=== PATIENT | female | born 1970 | race Caucasian/White ===

== ENCOUNTER → 2016-10-02 | Outpatient (CLI) | payer BC | END | disposition home or self-care (01) | LOC: LAB 13:34 | PROVIDERS: ATTEND Obstetrics & Gynecology | DX: N83.209 Unspecified ovarian cyst, unspecified side (principal) | CPT/HCPCS: 36415; 86304 ==

== ENCOUNTER → 2017-02-18 | Outpatient (CLI) | payer BC ==
--- NOTE | 2017-02-18 16:24 | RAD ---
Ultrasound pelvis with transvaginal 02/18/2017 Clinical indication: Bilateral ovarian cysts. Comparison: Images are not available, however there is a report from [email or web address] dated 09/18/2016. Findings: Examination is significantly limited due to body habitus. Uterus is present measuring 8.3 x 4.3 x 5.6 cm. Endometrium is not well evaluated with [employer] dual thickness measuring 10 mm. Right ovarian candidate measures 4.1 x 3.3 x 5.6 cm. Arterial and venous waveforms in the right ovary. There are 2 adjacent hypoechoic structures in the right ovary measuring 3.3 and 2.9 cm respectively with no definitive internal blood flow, however extensively limited. Left ovarian candidate measures 3.2 x 2.5 x 3.7 cm. Arterial and venous waveforms in the left ovarian candidate identified. No significant pelvic free fluid. Impression: 1. Significantly limited exam due to body habitus. 2. There are 2 adjacent hypoechoic structures on the right ovarian candidate measuring 3.3 and 2.9 cm with no definitive internal blood flow, however significantly limited. Findings may represent involuting cysts, however ovarian epithelial neoplasm cannot be definitively excluded. MRI pelvis without and with contrast is recommended for evaluation of ovarian malignancy. 3. No significant pelvic free fluid.
== END | disposition home or self-care (01) ==
LOC: US 14:26
PROVIDERS: ATTEND Obstetrics & Gynecology
DX: N83.201 Unspecified ovarian cyst, right side (principal); N83.202 Unspecified ovarian cyst, left side
CPT/HCPCS: 76830; 76856

== ENCOUNTER → 2020-06-13 | Outpatient (CLI) | payer BC ==
[2020-06-13 09:15] LABS: ALBUMIN 3.1 g/dL (3.4-5.0); ALBUMIN/GLOBULIN RATIO 0.8 (1.0-1.7); CALCIUM 9.1 mg/dL (8.5-10.1); GFR 59.2; POTASSIUM 4.3 mmol/L (3.5-5.1); TOTAL BILIRUBIN 0.3 mg/dL (0.2-1.0); TOTAL PROTEIN 6.8 g/dL (6.4-8.2)
[2020-06-14 01:09] LABS: HEMOGLOBIN A1C 6.3 % (4.8-5.6)
== END ==
LOC: LAB 07:53
PROVIDERS: ATTEND Nurse Practitioner
DX: E88.81 Metabolic syndrome and other insulin resistance (principal)
CPT/HCPCS: 36415; 80053; 80061; 83036